=== PATIENT | female | born 1990 | race American Indian/Alaskan Native ===

== ENCOUNTER 2017-08-28 14:35 | Emergency (ER) | payer SELFPAY ==
[2017-08-28 14:47] VITALS: BP 156/77
[2017-08-28] MEDS ORDERED: PEPCID PO ONE (15:46)
[2017-08-28] MEDS ORDERED: MOTRIN PO ONE (15:46)
--- NOTE | 2017-08-28 15:58 | Emergency Department Report ---
ED Abdominal Pain HPI - General Chief Complaint: Abdominal Pain Stated Complaint: STOMACH PAIN Time Seen by Provider: 08/28/17 15:26 Source: patient Mode of arrival: Ambulatory Limitations: No Limitations - History of Present Illness Initial Comments: This is a 26-year-old -[place] female presents with abdominal cramping for 1 month. Patient reports pain is worse with bending and at times sharp. The pain is primarily in her upper abdominal area. Currently pain is intermittent and 8 out of 10 on pain scale and nonradiating. 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 Patient reports last menstrual period was 08/19/2017. Concern this may be because in the past she had a normal menses the first half . Last nausea or vomiting, frequency, urgency, dysuria, fever, chest pain, shortness of breath, constipation or diarrhea. MD Complaint: abdominal pain Onset/Timin -: month(s) Location: LUQ, RUQ Radiation: none Migration to: no migration Severity: moderate Severity scale (0 -10): 8 Quality: cramping Consistency: intermittent Improves With: nothing Worsens With: movement Associated Symptoms: denies other symptoms Treatments Prior to Arrival: NSAIDs - Related Data LMP Date: 08/19/17 Previous Rx's Medication Instructions Recorded Last Taken Type metroNIDAZOLE [Flagyl] 500 mg PO Q8HR #20 tablet 06/20/13 Unknown Rx Ondansetron [Zofran Odt] 4 mg PO Q6H #10 tab.rapdis 11/27/13 Unknown Rx Vit-Fe Fumar-FA [ 1 each PO ONCE #30 tablet 11/27/13 04/07/14 Rx Vitamin] Allergies Allergy/AdvReac Type Severity Reaction Status Date / Time hydrocodone AdvReac Swelling Verified 06/20/13 14:46 Penicillins AdvReac Swelling Verified 06/20/13 14:45 ED Review of Systems ROS: Stated complaint: STOMACH PAIN Other details as noted in HPI Constitutional: denies: chills, fever Gastrointestinal: abdominal pain (upper abdominal pain). denies: nausea, vomiting, diarrhea, constipation, hematochezia Genitourinary: denies: urgency, dysuria, discharge Skin: denies: rash, lesions Neurological: denies: headache, weakness, paresthesias Psychiatric: denies: anxiety, depression ED Past Medical Hx - Past Medical History Previous Medical History?: Yes Hx Hypertension: No Hx Congestive Heart Failure: No Hx Diabetes: No Hx Deep Vein Thrombosis: No Hx Renal Disease: No Hx Sickle Cell Disease: No Hx Seizures: No Hx Asthma: Yes (Hx of no attack for the past 13years) Hx COPD: No Hx HIV: No - Social History Smoking Status: Current Every Day Smoker Substance Use Type: Alcohol - Medications Home Medications: Home Medications Medication Instructions Recorded Confirmed Last Taken Type metroNIDAZOLE [Flagyl] 500 mg PO Q8HR #20 tablet 06/20/13 04/09/14 Unknown Rx Ondansetron [Zofran Odt] 4 mg PO Q6H #10 tab.rapdis 11/27/13 04/09/14 Unknown Rx Vit-Fe Fumar-FA [ 1 each PO ONCE #30 tablet 11/27/13 04/09/14 04/07/14 Rx Vitamin] ED Physical Exam - General Limitations: No Limitations General appearance: alert, in no apparent distress, obese - Respiratory Respiratory exam: Present: normal lung sounds bilaterally. Absent: respiratory distress - Cardiovascular Cardiovascular Exam: Present: regular rate, normal rhythm. Absent: systolic murmur, diastolic murmur, rubs, gallop - GI/Abdominal GI/Abdominal exam: Present: soft, normal bowel sounds. Absent: distended, tenderness, guarding, rebound, rigid, organomegaly, mass - Back Exam Back exam: Present: normal inspection. Absent: CVA tenderness (R), CVA tenderness (L), rash noted - Neurological Exam Neurological exam: Present: alert, oriented X3 - Psychiatric Psychiatric exam: Present: normal affect, normal mood - Skin Skin exam: Present: warm, dry, intact, normal color. Absent: rash ED Course Vital Signs 08/28/17 08/28/17 14:42 16:30 Temperature 98.4 F Pulse Rate 70 Respiratory 18 16 Rate Blood Pressure 156/77 O2 Sat by Pulse 96 Oximetry ED Medical Decision Making - Lab Data Result diagrams: 08/28/17 15:56 08/28/17 15:56 - Radiology Data Radiology results: report reviewed EXAM: US ABDOMEN COMPLETE HISTORY: abd pain RUQ TECHNIQUE: Directed sonography of the upper abdomen. PRIORS: None. FINDINGS: Patient body habitus limits examination somewhat. Gallbladder contracted and contains tiny, echogenic and questionable shadowing focus in the neck. Wall thickness within normal limits. Intra-and extrahepatic bile ducts are of normal caliber. The liver has mildly heterogeneous, increased echogenicity without focal abnormalities. Right kidney measures 11.9 cm in longest dimension and left kidney measures 12.2 cm in longest dimension. No significant hydronephrosis. Visualized spleen and pancreatic parenchyma grossly unremarkable. Visualized abdominal aorta and IVC grossly unremarkable. IMPRESSION: 1. Possible cholelithiasis. 2. Findings which may represent fatty infiltration in the liver versus nonspecific hepatocellular disease. Correlate clinically. - Medical Decision Making 26 y.o. female that presents with abdominal pain for 1 month. Patient examined by me and Dr. Ny. No distress noted. Vitals stable. Obtained CBC, UA, hcg quant, & CMP. All labs are unremarkable. US of abdomen obtained and dictated by radiologist. 1. Possible cholelithiasis. 2. Findings which may represent fatty infiltration in the liver versus nonspecific hepatocellular disease. Correlate clinically. Referral to general surgery for cholelithiasis. Instructed to take milk thistle to help detox liver and follow-up with gastroenterology. Critical care attestation.: If time is entered above; I have spent that time in minutes in the direct care of this critically ill patient, excluding procedure time. ED Disposition Clinical Impression: Abdominal cramping, Fatty liver Cholelithiasis Qualifiers: Cholelithiasis location: gallbladder Cholecystitis presence: without cholecystitis Biliary obstruction: without biliary obstruction Qualified Code(s) : K80.20 - Calculus of gallbladder without cholecystitis without obstruction Disposition: TO HOME OR SELFCARE Is pt being admited?: No Does the pt Need Aspirin: No Condition: Stable Instructions: Abdominal Pain (ED), Biliary Colic (ED) Additional Instructions: Take [id number] milk thistle to have detox liver. Follow-up with gastroenterology. Follow-up with general surgery for management of gallstones. Follow-up with primary care provider in 2-3 days. Referrals: [facility] [Outside] - 3-5 Days [facility] [Provider Group] - 3-5 Days MARIAM BUSTILLO MD [Staff Physician] - 3-5 Days Forms: Work/School Release Form(ED) Time of Disposition: 17:40 Print Language: ARMENIAN
[2017-08-28 16:16] LABS: Basophils % (Auto) 0.4 % (0.0-1.8); Eosinophils # (Auto) 0.1 K/mm3 (0.0-0.4); Eosinophils % (Auto) 0.9 % (0.0-4.3); Hemoglobin 11.8 gm/dl (10.1-14.3); Lymphocytes # (Auto) 2.4 K/mm3 (1.2-5.4); Lymphocytes % (Auto) 30.6 % (13.4-35.0); Mean Corpuscular HGB Conc 33 % (30-34); Mean Corpuscular Hemoglobin 29 pg (28-32); Mean Corpuscular Volume 87 fl (79-97); Monocytes # (Auto) 0.7 K/mm3 (0.0-0.8); Monocytes % (Auto) 9.2 % (0.0-7.3); Platelet Count 305 K/mm3 (140-440); Red Blood Count 4.13 M/mm3 (3.65-5.03); Red Cell Distribution Width 14.8 % (13.2-15.2)
[2017-08-28 16:19] LABS: Alanine Aminotransferase 13 units/L (7-56); Albumin 3.9 g/dL (3.9-5); BUN/Creatinine Ratio 13; Blood Urea Nitrogen 8 mg/dL (7-17); Hemolysis Index 0; Lipase 22 units/L (13-60)
--- NOTE | 2017-08-28 17:01 | Ultrasound Report ---
FINAL REPORT EXAM: US ABDOMEN COMPLETE HISTORY: abd pain RUQ TECHNIQUE: Directed sonography of the upper abdomen. PRIORS: None. FINDINGS: Patient body habitus limits examination somewhat. Gallbladder contracted and contains tiny, echogenic and questionable shadowing focus in the neck. Wall thickness within normal limits. Intra-and extrahepatic bile ducts are of normal caliber. The liver has mildly heterogeneous, increased echogenicity without focal abnormalities. Right kidney measures 11.9 cm in longest dimension and left kidney measures 12.2 cm in longest dimension. No significant hydronephrosis. Visualized spleen and pancreatic parenchyma grossly unremarkable. Visualized abdominal aorta and IVC grossly unremarkable. IMPRESSION: 1. Possible cholelithiasis. 2. Findings which may represent fatty infiltration in the liver versus nonspecific hepatocellular disease. Correlate clinically.
--- NOTE | 2017-08-28 17:28 | Emergency Department Report ---
Blank Doc - Documentation Documentation: Patient's 26-year-old [place] female who's had off-and-on right upper quadrant discomfort for approximately a month. Patient denies any nausea and vomiting. Patient states is worse when she tries to eat. Patient have ultrasound of the right upper quadrant to rule out gallstones and laboratory studies were rechecked.
[2017-08-28 17:50] LABS: Bilirubin,Urine NEG (Negative); Blood,Urine NEG (Negative); Color,Urine Yellow (Yellow); Mucus,Urine 3+ /HPF; Urobilinogen,Urine < 2.0 mg/dL (<2.0)
== END 2017-08-28 17:49 | disposition home or self-care (01) ==
LOC: ED 14:35
DX: K80.20 Calculus of gallbladder without cholecystitis without obstruction (principal); K76.0 Fatty (change of) liver, not elsewhere classified; J45.909 Unspecified asthma, uncomplicated; F17.200 Nicotine dependence, unspecified, uncomplicated; Z88.4 Allergy status to anesthetic agent; Z88.0 Allergy status to penicillin
CPT/HCPCS: 36415; 76700; 80053; 81001; 83690; 84703; 85025